=== PATIENT | female | born 1970 | race Two or more races ===

== ENCOUNTER → 2024-09-28 | Outpatient (CLI) | payer MEDICAID, SELFPAY ==
--- NOTE | 2024-09-28 | XR_ITS ---
Examination: Abdomen AP single view Technique: AP portable supine abdomen, single view Exam date and time: September 28, 2024 1231 hours Bilateral flank and back pain beginning 2 months ago. FINDINGS: Bilateral renal calculi, the largest in the mid right kidney 18 mm No definite ureteral calculi Intact osseous structures IMPRESSION: Bilateral multiple renal calculi, the largest in the mid right kidney 18 mm
== END | disposition home or self-care (01) ==
PROVIDERS: PCP Nurse Practitioner Family; Referring Provider Surgery; Visit Provider Surgery
DX: N20.0 Calculus of kidney (principal)
CPT/HCPCS: 74018

== ENCOUNTER 2024-10-20 07:50 | Day surgery (SDC) | payer MEDICAID, SELFPAY ==
[2024-10-18 06:58] VITALS: BMI 25.7
--- NOTE | 2024-10-18 07:00 | EKG_ITS ---
[facility] Test Date: 2024-10-18 Pat Name: LOLI REMY Department: Room: - Gender: Female Safety Representative: RT STUDENT : 1970 Requested By: Bert Song Order Number: [id number] Reading MD: Bert Song Measurements Intervals [place] Rate: 65 P: 45 WA: 175 QRS: 26 QRSD: 82 T: 39 QT: 409 QTc: 427 Interpretive Statements SINUS RHYTHM Compared to ECG 03/24/2023 08:49:45 No significant changes /store/S0/[id number]/ecg/[id number].pdf
[2024-10-18 07:32] LABS: Collection Type, Urine Clean Catch
[2024-10-18 08:50] LABS: Bilirubin,Urine Negative (Negative); Blood,Urine Negative (Negative); Clarity,Urine Clear (Clear/Hazy); Color,Urine Lt-Yellow (Lt Yel-Yel); Glucose, Urine Negative (Negative); Ketones,Urine Negative (Negative); Leukocyte Esterase,Urine Negative (Negative); Nitrite,Urine Negative (Negative); Protein,Urine Negative (Neg - Trace); RBC,Urine 3 /hpf (0-3); Squamous Epithelial Cell,Urine 1 /hpf (0-5); Urobilinogen,Urine Negative mg/dL (0.0-1.0); WBC,Urine 1 /hpf (0-5)
[2024-10-18 08:53] LABS: Basophils % (Auto) 1 % (0-2.5); Eosinophils # (Auto) 0.1 Thou/mm3 (0.0-0.5); Eosinophils % (Auto) 2 % (0-10); Hemoglobin 15.3 g/dL (12.0-16.0); Immature Granulocytes % (Auto) 0 % (0-0); Immature Granulocytes Auto 0.01 Thou/mm3 (0.00-0.00); Lymphocytes # (Auto) 1.7 Thou/mm3 (1.0-4.8); Lymphocytes % (Auto) 34 % (10-50); Mean Corpuscular HGB Conc 33.3 g/dl (31.0-37.0); Mean Corpuscular Hemoglobin 30.1 pg (25.0-35.0); Mean Corpuscular Volume 91 fL (80-100); Monocytes # (Auto) 0.3 Thou/mm3 (0.0-0.8); Monocytes % (Auto) 7 % (0-12); Neutrophils # (Auto) 2.8 Thou/mm3 (1.8-7.7); Neutrophils % (Auto) 56 % (37-80); Nucleated Red Blood Cell % 0 /100 WBC (0); Platelet Count 218 Thou/mm3 (140-440); Red Blood Count 5.08 Miln/mm3 (4.00-5.20)
[2024-10-18 09:07] LABS: Alanine Aminotransferase 29 U/L (10-49); Albumin, Serum 4.8 gm/dL (3.5-5.0); Albumin/Globulin Ratio 1.7 (1.2-2.2); Alkaline Phosphatase 92 U/L (46-116); Anion Gap 8 (7-16); Aspartate Amino Transferase 16 U/L (0-34); BUN/Creatinine Ratio 23 Ratio (12-20); Bilirubin,Total 0.5 mg/dL (0.3-1.2); Blood Urea Nitrogen 16 mg/dL (9-23); Calcium 9.9 mg/dL (8.3-10.6); Calcium (Corrected) 9.9 mg/dL (8.5-10.1); Carbon Dioxide 29.4 mMol/L (20.0-31.0); Chloride 102 mMol/L (98-107); Creatinine (Component) 0.7 mg/dL (0.6-1.3); Estimated Creatinine Clearance 89.3 mL/min (>60); Globulin 2.9 gm/dL (2.3-3.5); Glucose 105 mg/dL (74-106); Osmolality,Calculated 278 (275-295); Potassium 3.7 mMol/L (3.4-5.1); Sodium 139 mMol/L (136-145); Total Protein 7.7 gm/dL (5.7-8.2); eGFR > 60 See Note
[2024-10-20] VITALS (7 sets, daily range): BP systolic 115–133; BP diastolic 74–83; PULSE 65–83; RESP 14–18; TEMP 36.1–36.3; O2SAT 95–99; BMI 25.6
--- NOTE | 2024-10-20 08:01 | ESHP_ITS ---
RE: LOLI REMY : 1970 DATE OF ADMISSION: 10/19/2024 The patient had a right kidney stone and left kidney stone. She is scheduled to have cystoscopy, right ureteral stent insertion and bilateral ESWL. HISTORY OF PRESENT ILLNESS: The patient is a -year-old female, Bengali-speaking. She has a right-sided flank pain for one year. She had a history of stones in the past. She has history of gross hematuria. PAST SURGICAL HISTORY: Cholecystectomy done one year ago. SOCIAL HISTORY: She has three children. PAST MEDICAL HISTORY: There is no history of diabetes mellitus. No history of hypertension. ALLERGIES: SHE IS ALLERGIC TO TRAMADOL, CAUSES NAUSEA. HOME MEDICATIONS: None. PHYSICAL EXAMINATION: HEENT: Normal. NECK: Supple. LUNGS: Clear. CARDIOVASCULAR: Heart sounds are normal. ABDOMEN: Soft without any organomegaly. No guarding. No rigidity. LABORATORY DATA: KUB film of the abdomen and CT scan of the abdomen and pelvis revealed a 10 mm calculus in the right renal pelvis, 2 mm entire lower pole right renal calculus. The patient also has a calculi in the left renal upper pole. IMPRESSION: Bilateral renal calculi, larger on the right side. PLAN: Cystoscopy, right ureteral stent insertion, and bilateral ESWL. Planned procedure, risks, and complications have been discussed with the patient. The patient understood them and agreed to proceed. DT: 11:50:10 TT: 13:31:00 Ref: [id number] - TID: [id number]
[2024-10-20] MEDS: RINGERS LACTATED 1000 ML 1,000 ML 20 ML IV (08:23)
--- NOTE | 2024-10-20 08:27 | CHAP ---
Patient expressed gratitude for prayer before their procedure.
--- NOTE | 2024-10-20 08:53 | XR_ITS ---
Examination: Abdomen AP single view Technique: AP portable supine abdomen, single view Exam date and time: October 20, 2024 0900 hours INDICATIONS: History kidney stones FINDINGS: 16 mm right renal calculus Tiny subcentimeter left renal calculi No ureteral calculi IMPRESSION: 16 mm right renal calculus
--- NOTE | 2024-10-20 11:40 | SUR.PHASEI ---
pt arrived to PACU via gurney drowsy but arouses to verbal commands, breathing unlabored, report from Benedict MORALES and Moe SIMMS
--- NOTE | 2024-10-20 12:13 | SUR.PHASEII ---
Received report on pt. s/p surgery from Azalea Awad RN. Pt. is resting, no c/o pain or nausea at this time, VSS.
--- NOTE | 2024-10-20 12:40 | SUR.PHASEII ---
Pt. met criteria for discharge, VSS, no c/o nausea or pain, IV discontinued without complications, discharge instructions provided to pt. and pt.'s daughter, verbalized understanding. Pt. escorted to vehicle with all of belongings by staff.
--- NOTE | 2024-10-20 18:11 | ESOP_ITS ---
RE: LOLI REMY : 1970 DATE OF OPERATION: 10/20/2024 PREOPERATIVE DIAGNOSIS: Bilateral renal stones, right renal stone 1.8 cm in size, left renal stone 5 mm in size. POSTOPERATIVE DIAGNOSIS: Bilateral renal stones, right renal stone 1.8 cm in size, left renal stone 5 mm in size. PROCEDURES PERFORMED: Cystoscopy, right ureteral stent insertion, right extracorporeal shock wave lithotripsy and then left extracorporeal shock wave lithotripsy. ANESTHESIA: General. INDICATIONS: The patient is a 54-year-old female with bilateral renal calculi and bilateral renal pain, more so on the right side. She has a 1.8-cm stone on the right side in the mid pole and she has a left renal stone about 5 mm in size in the mid pole. She is now scheduled to have cystoscopy, right ureteral stent insertion, right extracorporeal shock wave lithotripsy, followed by left extracorporeal shock wave lithotripsy. Planned procedure, risks and complications have been discussed with the patient. The patient understood them and agreed to proceed. DESCRIPTION OF PROCEDURE: After the patient was brought to the operating table under adequate general anesthesia in dorsal lithotomy position, parts were prepped and draped in the usual fashion. The patient has a significant cystocele, probably grade 2-3. Cystoscopy was done in a standard fashion. The meatus was opened. The scope was introduced into the bladder. There were no intravesical stones or tumors. Ureteral orifices were found to be normal in position and appearance. Residual urine was 2 ounces, yellow and clear and was sent for culture and sensitivity examination. Open-tip ureteral catheter was then inserted into the right ureteral orifice and was pushed up to the right kidney. Guidewire was then inserted through the catheter all the way up to the right kidney. This was confirmed by fluoroscopy. A 5-Amharic x 24 cm double-J ureteral stent was then inserted over the guidewire under C-arm fluoroscopy control so as the proximal loop of the stent is lying in the right kidney and distal loop is in the bladder. Cystoscopy was then completed. The patient was then positioned on Dornier Delta 3 lithotripsy machine. Right side kidney stone, which is 1.8 cm in size, was treated first, 2500 shocks were given to the right kidney stone, power level 7-8. After that is done, patient was then turned for the left kidney stone, which is 5 mm in size, 2000 shocks were given to this stone, a power level 7. The patient tolerated the entire procedure well and left the room in good condition. DT: 11:32:40 TT: 18:09:00 Ref: [id number] - TID: [id number]
== END 2024-10-20 12:40 | disposition home or self-care (01) ==
PROVIDERS: Anesthesiology; PCP Nurse Practitioner Family; Referring Provider Surgery; Visit Provider Surgery
PROC: (CPT 50590; principal; 2024-10-20 09:45)
PROC: (CPT 52282; 2024-10-20 09:45)
DX: N20.0 Calculus of kidney (principal)
CPT/HCPCS: 50590; 52332; 36415; 74018; 80053; 81001; 85025; 87086; 93005; A4217; A4649; C1876; J0131; J0694; J2250; J2405; J2704; J2765; J3010; J3490; J7120

== ENCOUNTER → 2024-11-01 | Outpatient (CLI) | payer MEDICAID, SELFPAY ==
--- NOTE | 2024-11-01 | XR_ITS ---
Examination: Abdomen AP single view Technique: AP portable supine abdomen, single view Exam date and time: November 01, 2024 1233 hours Comparison October 20, 2024 INDICATIONS: History kidney stones FINDINGS: Fragmentation of the lower pole calculus compared to the October 20, 2024 exam Right ureteral stent satisfactory position IMPRESSION: Significant fragmentation of the lower pole right renal calculus
== END | disposition home or self-care (01) ==
PROVIDERS: PCP Nurse Practitioner Family; Referring Provider Nurse Practitioner Family; Visit Provider Nurse Practitioner Family
DX: N20.0 Calculus of kidney (principal)
CPT/HCPCS: 74018

== ENCOUNTER 2024-11-19 00:39 | Emergency (ER) | payer MEDICAID, SELFPAY ==
[2024-11-19 01:16] VITALS: BP 151/93; PULSE 82; RESP 21; TEMP 36.7; O2SAT 99
--- NOTE | 2024-11-19 01:23 | EDRME_ITS ---
Rapid Medical Screening Exam [facility] Arrival date/time: 11/19/24 00:39 54F with history of recent lithotripsy and urostent placement presents to ED with 3 days of pelvic pain and dysuria. Patient states it feels different than another stone or UTI. Patient denies external discharge or rash. Chief Complaint: General Adult/Misc Complain Vital signs: Vital Signs Temperature 98.0 F 11/19/24 01:16 Pulse Rate 82 11/19/24 01:16 Respiratory Rate 21 H 11/19/24 01:16 Blood Pressure 151/93 H 11/19/24 01:16 Pulse Oximetry (%) 99 11/19/24 01:16 Oxygen Delivery Method Room Air 11/19/24 01:16
[2024-11-19] MEDS: NAPROXEN 250 MG TABLET 500 MG PO (01:30)
[2024-11-19 01:45] LABS: Collection Type, Urine Clean Catch
[2024-11-19 01:51] LABS: Bilirubin,Urine Negative (Negative); Blood,Urine Negative (Negative); Clarity,Urine Clear (Clear/Hazy); Color,Urine Colorless (Lt Yel-Yel); Culture Indicated,Urine Not Indicated; Glucose, Urine Negative (Negative); Ketones,Urine Negative (Negative); Leukocyte Esterase,Urine Negative (Negative); Nitrite,Urine Negative (Negative); PH,Urine 6.5 (5.0-7.0); Protein,Urine Negative (Neg - Trace); RBC,Urine < 1 /hpf (0-3); Specific Gravity,Urine 1.008 (1.001-1.035); Squamous Epithelial Cell,Urine < 1 /hpf (0-5); Urobilinogen,Urine Negative mg/dL (0.0-1.0); WBC,Urine 3 /hpf (0-5)
--- NOTE | 2024-11-19 02:26 | PD.EDADULT ---
ED General RME/HPI General Chief complaint: General Adult/Misc Complain Stated complaint: PAIN IN URINATION Time Seen by Provider: 11/19/24 01:24 Source: patient and family Arrival date/time: 11/19/24 00:39 Mode of arrival: ambulatory Limitations: no limitations RME / HPI RME / HPI narrative: 11/19/24 00:39 54F with history of recent lithotripsy and urostent placement presents to ED with 3 days of pelvic pain and dysuria. Patient states it feels different than another stone or UTI. Patient denies external discharge or rash. Dr. Javed?s Main ED Evaluation: 54-year-old female who presents with complaints of increased urinary frequency and vaginal discomfort. She reports having had a stent placed one month ago and states that she followed up with her urologist earlier this week. According to the patient, the urologist informed her that she is awaiting insurance authorization for stent removal. She expresses concern that the stent may have shifted, leading to her current symptoms. The patient describes that her symptoms began three days ago and include pain and tenderness when wiping. She also reports persistent urinary leakage and dribbling. She denies additional symptoms such as fever, chills, nausea, vomiting, hematuria, flank pain, or dysuria beyond the discomfort she experiences when wiping. Related Data Previous Rx's ?Medication ?Instructions ?Recorded ciprofloxacin HCl 500 mg tablet 500 mg PO BID #20 tabs 10/20/24 (Cipro) hydrocodone 5 mg-acetaminophen 325 1 tab PO Q8H PRN pain #20 tabs 10/20/24 mg tablet Allergies Allergy/AdvReac Type Severity Reaction Status Date / Time tramadol Allergy Intermediate Dizziness Verified 10/20/24 11:50 Review of Systems Review of Systems Systems Reviewed: All systems reviewed, normal except as documented Past Medical History Past Medical History NEUROLOGIC: Negative Neurological Disorders or Seizures CARDIAC: Negative Cardiac Disorders or Congestive Heart Failure RESPIRATORY: Negative Chronic Obstructive Pulmonary Disease (COPD) or Asthma GASTROINTESTINAL: Negative Gastrointestinal Disorders, Hepatitis or Gall Bladder Disease GENITOURINARY: Positive Genitourinary Disorders and Kidney Stones; Negative Renal Disease REPRODUCTIVE: Positive Previous Pregnancies MUSCULOSKELETAL: Negative Musculoskeletal Disorders ENDOCRINE: Negative Endocrine Disorders, Diabetes Mellitus Type 1 or Diabetes Mellitus Type 2 HEMATOLOGIC: Negative Blood Disorders or Sickle Cell Disease OTHER HISTORY: Positive Anesthesia Reactions (nausea/vomiting), Chicken Pox and Measles; Negative Hospitalization, Autoimmune Disease, Blood Transfusions, Blood Transfusion Reaction, Chemotherapy, Mumps or Cancer Family History FAMILY HISTORY: Positive Family Surgery; Negative Family Psychiatric Problems, Family Respiratory Disorders, Family Cardiac Disorders, Family Gastrointestinal Problems, Family Cancer or Family Anesthesia Reaction Surgical History SURGICAL: Positive Abdominal Surgery Social History SMOKING STATUS: Never smoker ED Exam Narrative Physical exam: GENERAL APPEARANCE: alert and oriented x 4, well-developed, well-nourished, no acute distress VITALS: All vitals were reviewed and the pulse ox is 99% on room air, which is normal according to my interpretation. HEENT: Normocephalic, atraumatic; pupils equal, round, reactive to light; EOMI; mucous membranes pink, moist; oropharynx clear NECK: Supple LUNGS: CTABL; no wheezes, no rales, no rhonchi HEART: Regular rate, regular rhythm; normal S1, S2; no murmurs ABDOMEN: non distended; normal BS; soft, no tenderness, no guarding, no rebound; no masses, no organomegaly, no hernia BACK: no CVA tenderness EXTREMITIES: atraumatic; no edema NEUROLOGIC: awake; alert and oriented x4; cranial nerves II-XII grossly intact; no focal sensory or motor deficits PSYCHIATRIC: appropriate mood and affect SKIN: warm, dry, normal color; no rashes General Limitations: Present no limitations Course Quality Measures none Orders Category Date Time Status CBC Stat Lab 11/19/24 02:21 Completed CMP [Comprehensive Metabolic Panel] Stat Lab 11/19/24 02:21 Completed Urinalysis, C/S if Indicated Stat Lab 11/19/24 01:25 Completed Naproxen [Naprosyn] Med 11/19/24 01:26 Discontinued 500 mg PO X1 ONE Vital Signs Vital signs: Vital Signs Temperature 98.0 F 11/19/24 01:16 Pulse Rate 82 11/19/24 01:16 Respiratory Rate 21 H 11/19/24 01:16 Blood Pressure 151/93 H 11/19/24 01:16 Pulse Oximetry (%) 99 11/19/24 01:16 Oxygen Delivery Method Room Air 11/19/24 01:16 [facility] Patient data External records reviewed:: [facility] previous records Clinical information provided by:: patient Social determinants that could affect healthcare access:: none Patient has the following chronic illnesses:: see PMH How is presenting disease/condition affected by chronic disease/condition?: uneffected by Evaluation data The following diagnostics were reviewed and interpreted by me:: lab results Lab and/or radiology exams considered but not ordered:: n/a Interpretation Summary: n/a Medications Medications considered but not ordered:: n/a Medication administrations:: Medication Administration History Discontinued Medications Naproxen (Naproxen 250 Mg Tablet) 500 mg PO X1 ONE Stop: 11/19/24 01:27 Last Admin: 11/19/24 01:30 Dose: 500 mg Documented By: as above Consultations Consultation(s) initiated? (list below): No Diagnosis Differential Diagnosis ED Complaint MDM: see narrative Most likely diagnosis given after review of the tests above:: Urinary incontinence Admission Indicated Admission indicated?: not indicated Explain why admission is indicated or not indicated:: No significant findings indicating admission. Admission Request Was there a request for admission?: No Disposition Plan Disposition Plan: Discharge Discharge Attestation Discharge Attestation: The patient and all family members were given an opportunity to ask questions and understood the discharge instructions. Discharge instructions specifically effects, indications for sooner follow up or return to the emergency department, and the expected course of current diagnosis. Patient condition: Stable Medical Decision Making MDM Narrative MDM Narrative: The differential diagnosis includes urinary tract infection (UTI), hematuria, ureteral stent migration, and other potential causes such as bladder irritation or obstruction. Scribe Attestation: ILeeanna, am scribing for and in the presence of Dr. Javed. Provider Notation: Although this document has been carefully reviewed, there may still be some phonetic and other typographical errors. These errors are purely grammatical due to imperfections in the software program and should not be construed in any way to compromise the substance of the patient's medical care during this visit. Differential Diagnosis Differential Diagnosis: see narrative Medical Records Medical records reviewed: Yes I reviewed the patient's medical records. Lab Data Lab results reviewed: Yes I reviewed the patient's lab results. 11/19/24 02:21 11/19/24 02:21 Labs: Lab Results 11/19/24 11/19/24 Range/Units 01:25 02:21 WBC 6.3 (3.6-11.0) Thou/mm3 RBC 4.77 (4.00-5.20) Miln/mm3 Hgb 14.2 (12.0-16.0) g/dL Hct 41.8 (36.0-46.0) % MCV 88 (80-100) fL MCH 29.8 (25.0-35.0) pg MCHC 34.0 (31.0-37.0) g/dl RDW Std Deviation 37.2 (36.4-46.3) fL Plt Count 174 D (140-440) Thou/mm3 Neut % (Auto) 60 (37-80) % Lymph % (Auto) 30 (10-50) % [place] % (Auto) 7 (0-12) % Eos % (Auto) 2 (0-10) % Baso % (Auto) 1 (0-2.5) % Neut # (Auto) 3.8 (1.8-7.7) Thou/mm3 Lymph # (Auto) 1.9 (1.0-4.8) Thou/mm3 Perkins # (Auto) 0.4 (0.0-0.8) Thou/mm3 Eos # (Auto) 0.2 (0.0-0.5) Thou/mm3 Baso # (Auto) 0.0 (0.0-0.2) Thou/mm3 Immature Gran # (Auto) 0.01 H (0.00-0.00) Thou/mm3 Absolute Nucleated RBC 0.00 (0.00-0.00) Thou/mm3 Immature Gran % 0 (0-0) % Nucleated RBC % 0 (0) /100 WBC Sodium 139 (136-145) mMol/L Potassium 3.8 (3.4-5.1) mMol/L Chloride 106 (98-107) mMol/L Carbon Dioxide 24.6 (20.0-31.0) mMol/L Anion Gap 8 (7-16) BUN 18 (9-23) mg/dL Creatinine 1.0 (0.6-1.3) mg/dL Estim Creat Clear Calc Not Performed. eGFR > 60 (60 - ) See Note BUN/Creatinine Ratio 18 (12-20) Ratio Glucose 119 H (74-106) mg/dL Calculated Osmolality 280 (275-295) Calcium 9.1 (8.3-10.6) mg/dL Corrected Calcium 9.1 (8.5-10.1) mg/dL Total Bilirubin 0.4 (0.3-1.2) mg/dL AST 11 (0-34) U/L ALT 18 (10-49) U/L Alkaline Phosphatase 80 (46-116) U/L Total Protein 7.1 (5.7-8.2) gm/dL Albumin 4.3 (3.5-5.0) gm/dL Globulin 2.8 (2.3-3.5) gm/dL Albumin/Globulin Ratio 1.5 (1.2-2.2) Ur Collection Type Clean Catch Urine Color Colorless A (Lt Yel-Yel) Urine Clarity Clear (Clear/Hazy) Urine pH 6.5 (5.0-7.0) Ur Specific [place] 1.008 (1.001-1.035) Urine Protein Negative (Neg - Trace) Urine Glucose (UA) Negative (Negative) Urine Ketones Negative (Negative) Urine Blood Negative (Negative) Urine Nitrite Negative (Negative) Urine Bilirubin Negative (Negative) Urine Urobilinogen (Auto) Negative (0.0-1.0) mg/dL Ur Leukocyte Esterase Negative (Negative) Urine RBC < 1 (0-3) /hpf Urine WBC 3 (0-5) /hpf Ur Squamous Epith Cells < 1 (0-5) /hpf Urine Bacteria None (None) Ur Culture Indicated? Not Indicated Discharge Plan Prescriptions/Referrals Prescriptions/Med Rec: No Action hydrocodone-acetaminophen 5-325 mg tablet 1 tab PO Q8H MDD 3 PRN (Reason: pain) Qty: 20 0RF ciprofloxacin HCl [Cipro] 500 mg tablet 500 mg PO BID Qty: 20 0RF Problem List Clinical Impression: Urinary incontinence Patient/Caregiver Discharge Instructions Print Language: Occitan
[2024-11-19 02:44] LABS: Basophils % (Auto) 1 % (0-2.5); Eosinophils # (Auto) 0.2 Thou/mm3 (0.0-0.5); Eosinophils % (Auto) 2 % (0-10); Hematocrit 41.8 % (36.0-46.0); Hemoglobin 14.2 g/dL (12.0-16.0); Immature Granulocytes % (Auto) 0 % (0-0); Immature Granulocytes Auto 0.01 Thou/mm3 (0.00-0.00); Lymphocytes # (Auto) 1.9 Thou/mm3 (1.0-4.8); Lymphocytes % (Auto) 30 % (10-50); Mean Corpuscular Hemoglobin 29.8 pg (25.0-35.0); Mean Corpuscular Volume 88 fL (80-100); Monocytes # (Auto) 0.4 Thou/mm3 (0.0-0.8); Monocytes % (Auto) 7 % (0-12); Neutrophils # (Auto) 3.8 Thou/mm3 (1.8-7.7); Neutrophils % (Auto) 60 % (37-80); Nucleated Red Blood Cell % 0 /100 WBC (0); Platelet Count 174 Thou/mm3 (140-440); RDW Standard Deviation 37.2 fL (36.4-46.3); Red Blood Count 4.77 Miln/mm3 (4.00-5.20); White Blood Count 6.3 Thou/mm3 (3.6-11.0)
[2024-11-19 02:58] LABS: Alanine Aminotransferase 18 U/L (10-49); Albumin, Serum 4.3 gm/dL (3.5-5.0); Albumin/Globulin Ratio 1.5 (1.2-2.2); Alkaline Phosphatase 80 U/L (46-116); Anion Gap 8 (7-16); Aspartate Amino Transferase 11 U/L (0-34); BUN/Creatinine Ratio 18 Ratio (12-20); Bilirubin,Total 0.4 mg/dL (0.3-1.2); Blood Urea Nitrogen 18 mg/dL (9-23); Calcium 9.1 mg/dL (8.3-10.6); Calcium (Corrected) 9.1 mg/dL (8.5-10.1); Carbon Dioxide 24.6 mMol/L (20.0-31.0); Chloride 106 mMol/L (98-107); Globulin 2.8 gm/dL (2.3-3.5); Glucose 119 mg/dL (74-106); Osmolality,Calculated 280 (275-295); Potassium 3.8 mMol/L (3.4-5.1); Sodium 139 mMol/L (136-145); Total Protein 7.1 gm/dL (5.7-8.2); eGFR > 60 See Note
[2024-11-19 03:32] VITALS: BP 145/75; PULSE 75; RESP 18; TEMP 36.6; O2SAT 99
== END 2024-11-19 03:32 | disposition home or self-care (01) ==
PROVIDERS: Physician Assistant; Emergency Provider Emergency Medicine; PCP Nurse Practitioner Family
DX: R32 Unspecified urinary incontinence (principal)
CPT/HCPCS: 36415; 80053; 81001; 85025; 99283; A9270